=== PATIENT | male | born 1990 | race Caucasian/White ===

== ENCOUNTER 2018-02-16 14:37 | Emergency (ER) | payer OTHER ==
[2018-02-16 14:49] VITALS: BP 139/79; TEMP 97.9
[2018-02-16] MEDS ORDERED: FAMOTIDINE 20 MG/2 ML VIAL IV STA (14:59)
[2018-02-16] MEDS ORDERED: methylPREDNISolone SOD SUCCI 125 MG/2 ML VIAL IV STA (14:59)
[2018-02-16] MEDS ORDERED: diphenhydrAMINE 50 MG/ML 1 ML VIAL IVP STA (15:00)
--- NOTE | 2018-02-16 15:04 | ED ---
General Adult HPI - General Chief complaint: Allergic Reaction Stated complaint: Stung by bee/Allergic reaction Time Seen by Provider: 02/16/18 14:54 Source: patient, RN notes reviewed Mode of arrival: ambulatory Limitations: no limitations - History of Present Illness Initial comments: Patient for 27-year-old male presented to the emergency room today with chief complaint of being stung by bee approximate half an hour ago. He does not that he noticed on the top of his head. He states began feeling very itchy. Patient states that he went to the store and picked up some children's Benadryl and begin drinking this. Patient states does not help much with his itching. He does admit that his lips are swollen. Denies any tongue swelling, difficulty breathing or swallowing. Denies any other complaints or symptoms at this time. States he has never Had an ALLERGIC reaction similar to this in the past. Patient denies any recent fever, chills, shortness of breath, chest pain, back pain, abdominal pain, nausea or vomiting, numbness or tingling, headaches or visual changes, or any other complaints. - Related Data Previous Rx's Medication Instructions Recorded EPINEPHrine [Epipen 2-Quinn] 0.3 mg IM ONCE PRN #1 ml 02/16/18 Famotidine [Pepcid] 20 mg PO BID #10 tablet 02/16/18 diphenhydrAMINE [Benadryl] 1 - 2 tab PO Q6HR PRN #30 capsule 02/16/18 predniSONE 50 mg PO DAILY #5 tab 02/16/18 Allergies Allergy/AdvReac Type Severity Reaction Status Date / Time bee venom protein (honey bee) Allergy Swelling Verified 02/16/18 14:46 Sulfa (Sulfonamide Allergy Unknown Verified 02/16/18 14:46 Antibiotics) Review of Systems ROS Statement: Those systems with pertinent positive or pertinent negative responses have been documented in the HPI. ROS Other: All systems not noted in ROS Statement are negative. Past Medical History Past Medical History: No Reported History History of Any Multi-Drug Resistant Organisms: None Reported Past Surgical History: No Surgical Hx Reported Past Psychological History: No Psychological Hx Reported Smoking Status: Never smoker Past Alcohol Use History: None Reported Past Drug Use History: None Reported General Exam - General Exam Comments Initial Comments: General: The patient is awake and alert, in no distress, and does not appear acutely ill. Eye: Pupils are equal, round and reactive to light, extra-ocular movements are intact. No nystagmus. There is normal conjunctiva bilaterally. No signs of icterus. Ears, nose, mouth and throat: There are moist mucous membranes and no oral lesions. Neck: The neck is supple, there is no tenderness or JVD. Cardiovascular: There is a regular rate and rhythm. No murmur, rub or gallop is appreciated. Respiratory: Lungs are clear to auscultation, respirations are non-labored, breath sounds are equal. No wheezes, stridor, rales, or rhonchi. Musculoskeletal: Normal ROM, no tenderness. Strength 5/5. Sensation intact. Pulses equal bilaterally 2+. Neurological: A&O x 3. CN II-XII intact, There are no obvious motor or sensory deficits. Coordination appears grossly intact. Speech is normal. Skin: Skin is warm and dry. Redness to the anterior posterior trunk and upper extremities. Psychiatric: Cooperative, appropriate mood & affect, normal judgment. Limitations: no limitations Course Vital Signs 02/16/18 02/16/18 14:46 15:20 Temperature 97.9 F Pulse Rate 111 H 89 Respiratory 16 18 Rate Blood Pressure 139/79 O2 Sat by Pulse 96 99 Oximetry EKG Findings - EKG Comments: EKG Findings:: EKG performed at 1618: Shows normal sinus rhythm at 83 beats per minute. WI interval 158 QRS 84. QT/QTC 346/406. No acute ST changes. Medical Decision Making - Medical Decision Making Patient reexamined at this time shows no signs of distress. Patient does admit feeling much better here in the emergency room. Angioedema much improved. No lip swelling. Patient denies any tongue swelling, lip breathing or swallowing. Patient feeling better after Benadryl, Pepcid, site Medrol. Patient's been observed for last hour and a half with no rebound. Patient will be discharged home given perception for EpiPen along with prednisone, Pepcid, Benadryl. Advised to continue his medications return here to the emergency room if any symptoms increase or worsen. Disposition Clinical Impression: Allergic reaction Disposition: HOME SELF-CARE Condition: Good Instructions: Anaphylaxis (ED) Additional Instructions: Please use medication as discussed. Please follow-up with family doctor in the next 2 days of symptoms have not improved. Please return to emergency room if the symptoms increase or worsen or for any other concerns. Prescriptions: diphenhydrAMINE [Benadryl] 1 - 2 tab PO Q6HR PRN #30 capsule PRN Reason: Allergic Reaction EPINEPHrine [Epipen 2-Quinn] 0.3 mg IM ONCE PRN #1 ml PRN Reason: Allergic Reaction Famotidine [Pepcid] 20 mg PO BID #10 tablet predniSONE 50 mg PO DAILY #5 tab Is patient prescribed a controlled substance at d/c from ED?: No Referrals: None,Stated [Primary Care Provider] - 1-2 days Carlos Quintanilla MD [STAFF PHYSICIAN] - 1-2 days Time of Disposition: 16:21
[2018-02-16 15:21] VITALS: PULSE 89; RESP 18
== END 2018-02-16 16:34 | disposition home or self-care (01) ==
LOC: EC 14:37
DX: T63.441A Toxic effect of venom of bees, accidental (unintentional), initial encounter (principal); Z91.030 Bee allergy status; Z88.2 Allergy status to sulfonamides
CPT/HCPCS: 93005; 99284; 96374; 96375 ×2; J1200; J2930

== ENCOUNTER 2020-03-26 11:49 | Day surgery (SDC) | payer OTHER ==
[2020-03-25 08:22] VITALS: BMI 25.8
[~2020-03-26 11:49] MED LIST: DEXAMETHASONE SOD PHOSPHATE 10 MG/ML 1 ML VIAL IV ONE; HYDROmorphone 0.5 MG/0.5 ML SYRINGE IVP PRN; LACTATED RINGERS 1,000 ML IV SCH; LIDOCAINE 1% (10MG/ML) FOR IV START INTRADERMA PRN
[2020-03-26 12:36] VITALS: RESP 16; TEMP 97.4
[2020-03-26] MEDS ORDERED: ONDANSETRON 4 MG/2 ML VIAL ONE (12:44)
[2020-03-26] MEDS ORDERED: ONDANSETRON 4 MG/2 ML VIAL IVP ONE (12:46)
[2020-03-26] MEDS ORDERED: SODIUM BICARB 8.4% 10 ML VIAL (1 MEQ/ML) ONE (13:56)
[2020-03-26] MEDS ORDERED: fentaNYL (PF) 50 MCG/ML 2 ML AMP ONE (14:24)
[2020-03-26] MEDS ORDERED: PROPOFOL 10 MG/ML 20 ML VIAL IV ONE (14:24)
[2020-03-26] MEDS ORDERED: MIDAZOLAM 2 MG/2 ML VIAL ONE (14:24)
[2020-03-26] MEDS ORDERED: diphenhydrAMINE 50 MG/ML 1 ML VIAL ONE (14:24)
[2020-03-26] MEDS ORDERED: KETAMINE 10 MG/ML 20 ML VIAL ONE (14:24)
[2020-03-26] MEDS ORDERED: LACTATED RINGERS 1,000 ML IV ONE (16:35)
[2020-03-26] MEDS ORDERED: LIDOCAINE 1%-EPI 1:100,000 20 ML VIAL SQ ONE (16:54)
[2020-03-26 17:47] VITALS: BP 126/72; PULSE 88
--- NOTE | 2020-03-29 09:12 | FL ---
EXAMINATION TYPE: FL guidance operating room, XR finger LT DATE OF EXAM: 03/26/2020 CLINICAL HISTORY: Left thumb torn ligament. TECHNIQUE: Fluoroscopy. Intraoperative 2 views left finger. COMPARISON: None. FINDINGS: Fluoroscopic guidance was provided during left thumb ligament repair procedure performed irene Barillas. A total of 41 seconds of fluoroscopic time was utilized during the procedure and 5 spot intraoperative images are acquired. Intraoperative images obtained show several views of left thumb satisfactory in alignment on images o btained. IMPRESSION: As Above.
--- NOTE | 2020-03-31 13:56 | P.OP ---
Date of Procedure: 03/26/20 Preoperative Diagnosis: Ulnar collateral ligament tear of the left thumb metacarpophalangeal (MCP) joint. Postoperative Diagnosis: Ulnar collateral ligament tear of the left thumb metacarpophalangeal (MCP) joint. Procedure(s) Performed: Repair of left thumb MCP joint ulnar collateral ligament. Implants: Arthrex 3.5 mm SwiveLock anchors (2), 3-0 FiberWire suture and SutureTape. Anesthesia: MAC, local Surgeon: Elias Barillas Ve Teacher #1: Brandi Angulo Estimated Blood Loss (ml): 5 Condition: stable Disposition: same day Indications for Procedure: The patient is 29-year-old male who sustained a traumatic injury to his left thumb, resulting in an ulnar collateral ligament tear. An MRI was obtained, the appearance of which suggested a Stener lesion. Risks and benefits of surgery were discussed in the office, including persistent or recurrent laxity, stiffness, loss of motion and possible need for future surgery. The patient expressed understanding, willingness to accept these risks and elected operative treatment. In preop, additional questions were addressed. The patient admitted that he had been continuing to use the thumb for work and had persistent pain and subjective instability. Consent forms were signed. The operative site was confirmed and marked in preop. Description of Procedure: After consent was obtained, lidocaine with epinephrine was injected around the planned incision/surgical site in preop, using aseptic technique. After an appropriate interval of time, the patient was brought to the OR and positioned supine with the operative limb on a hand table. A tourniquet was applied. Anes thesia and prophylactic antibiotics were administered uneventfully. The left upper extremity was then prepped and draped in standard, sterile fashion. A time-out was performed, confirming patient identifiers, the operative side, the site and the procedure to be performed: all team members expressed agreement. The thumb was initially evaluated with intraoperative fluoroscopy: the MCP joint showed no subluxation or angulation at rest; however, dynamic UCL stress demonstrated marked laxity and gross widening of the ulnar joint space. The decision was made to proceed with repair as planned. Loupe magnification was utilized throughout the case for optimum visualization. A curvilinear incision was marked on the ulnar aspect of the MCP joint. The skin was sharply incised and the subcutaneous tissues were bluntly spread, taking care to identify and protect adjacent sensory nerve branches. The adductor aponeurosis was identified and sharply incised volar to the EPL tendon. The aponeurosis was elevated and reflected. The surrounding tissues were thickened and hypervascular. At this point, the limb was exsanguinated with an Esmarch and the tourniquet was inflated. The ulnar collateral ligament was adherent to the undersurface of the aponeurosis and was sharply . It was also scarred down to the joint capsule in a retracted position. The ligament was sharply elevated and mobilized. The tissue quality was decent but not exceptional: the remaining proper collateral ligament was somewhat narrow but strong and well- fixed proximally. The tissue of the accessory collateral was more robust. The decision was made to proceed with repair. The insertion points for the proximal and distal anchors were exposed and confirmed on imaging. Guidewires for the anchors were drilled into the base of the proximal phalanx and metacarpal head. Wire positions were confirmed on orthogonal images. The cannulated drill was inserted over the wires and drilled to a positive stop. The wires were removed and the anchor sites were irrigated. Loaded with 3-0 FiberWire suture and a SutureTape, a 3.5 mm SwiveLock anchor was inserted into the base of the proximal phalanx. Once fully inserted, traction on the sutures demonstrated solid purchase. The FiberWire was used to repair both the proper and accessory collateral ligaments, using a horizontal mattress stitch. With the MCP joint held in adduction and 30 of flexion, the sutures were tied. The tails of the SutureTape were loaded into the second anchor which was then inserted into the head of the metacarpal. The repair showed excellent stability with UCL stress in full extension and 30 of flexion: firm endpoint; no laxity or gapping. The MCP joint retained full passive extension and good passive flexion (>50). The MCP joint was then stressed under live fluoroscopy: there was no gapping or widening of the ulnar joint space. No terry-implant fractures were identified. The wound was thoroughly irrigated. The adductor aponeurosis was repaired with 3-0 Monocryl suture using interrupted [id number] stitches. The tourniquet was released after 86 minutes at 175 mmHg. Good hemostasis was obtained with manual pressure and bipolar cautery. The wound was again irrigated and the incision was closed with interrupted 5-0 nylon sutures. Additional local anesthetic with epinephrine was injected for adjunct postoperative pain control and hemostasis. A sterile dressing was applied followed by a short arm plaster thumb spica splint. All sponge count, needle and instrument counts were correct at the end of the case. The patient tolerated the procedure well and was transferred to the recovery in stable condition.
== END 2020-03-26 18:00 | disposition home or self-care (01) ==
LOC: OR 11:49
PROVIDERS: ATTEND Orthopaedic Surgery
DX: S53.32XA Traumatic rupture of left ulnar collateral ligament, initial encounter (principal); X50.1XXA Overexertion from prolonged static or awkward postures, initial encounter; Z88.2 Allergy status to sulfonamides; Z91.030 Bee allergy status; Z98.890 Other specified postprocedural states
CPT/HCPCS: 73140; 26540; 26531; C1713; J2250; J1200; J1100; J0690; J2405; J3010; J2704